=== PATIENT | male | born 1995 | race Caucasian/White ===

== ENCOUNTER 2020-12-13 11:57 | Emergency (ER) | payer OTHER, SELFPAY ==
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
[2020-12-13 12:09] VITALS: BP 129/78; PULSE 78; RESP 16; TEMP 36.4; O2SAT 99
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
== END 2020-12-13 12:56 | disposition home or self-care (01) ==
PROVIDERS: Emergency Provider Nurse Practitioner
DX: M25.511 Pain in right shoulder (principal); V86.35XA Unspecified occupant of 3- or 4- wheeled all-terrain vehicle (ATV) injured in traffic accident, initial encounter
CPT/HCPCS: 73030; 99213; G0463